=== PATIENT | female | born 1965 | race Caucasian/White ===

== ENCOUNTER 2022-04-21 14:59 | Outpatient (RCR) | payer BC, SELFPAY ==
--- NOTE | 2022-05-22 09:40 | ONC.NURNOTE ---
Called pt to review changes in [facility] and Dr. Parnell's transition to [facility]. Pt confirms she would like to continue care with Dr. Parnell here. Due for f/u ~ -10/2022 after mammogram; will schedule closer to the time.
== END 2022-10-18 23:59 | disposition home or self-care (01) ==
LOC: CCIC 14:59
PROVIDERS: PCP Surgery; Visit Provider Internal Medicine Hematology & Oncology
DX: C50.912 Malignant neoplasm of unspecified site of left female breast (principal); Z17.1 Estrogen receptor negative status [ER-]; N64.59 Other signs and symptoms in breast; R23.2 Flushing
CPT/HCPCS: 99212; 99213; 99214

== ENCOUNTER 2023-02-01 13:49 | Outpatient (RCR) | payer BC, SELFPAY | END 2023-07-31 23:59 | disposition home or self-care (01) | LOC: CCIC 13:49 | PROVIDERS: PCP Surgery; Visit Provider Internal Medicine Hematology & Oncology | DX: C50.912 Malignant neoplasm of unspecified site of left female breast (principal); Z17.1 Estrogen receptor negative status [ER-]; R06.09 Other forms of dyspnea; N64.59 Other signs and symptoms in breast; R23.2 Flushing | CPT/HCPCS: 99212; 99213 ==

== ENCOUNTER 2023-08-16 12:42 | Outpatient (RCR) | payer BC, SELFPAY | END 2024-02-12 23:59 | disposition home or self-care (01) | LOC: CCIC 12:42 | PROVIDERS: PCP Surgery; Visit Provider Physician Assistant | DX: C50.912 Malignant neoplasm of unspecified site of left female breast (principal); Z17.1 Estrogen receptor negative status [ER-]; R23.2 Flushing; R68.83 Chills (without fever) | CPT/HCPCS: 99214; G0463 ==

== ENCOUNTER 2024-05-08 12:44 | Outpatient (RCR) | payer BC, SELFPAY | END 2024-11-04 23:59 | disposition home or self-care (01) | LOC: CCIC 12:44 | PROVIDERS: PCP Surgery; Visit Provider Physician Assistant | DX: C50.912 Malignant neoplasm of unspecified site of left female breast (principal); Z17.1 Estrogen receptor negative status [ER-] | CPT/HCPCS: 99213; G0463 ==